=== PATIENT | male | born 1970 | race Caucasian/White ===

== ENCOUNTER → 2022-03-30 | Outpatient (CLI) | payer SELFPAY ==
[2022-03-30 14:27] LABS: Erythrocyte Sedimentation Rate 4 mm/hr (0-20)
[2022-03-30 14:53] LABS: Vitamin B12 968 pg/mL (211-911)
[2022-03-30 15:44] LABS: CRP < 2.90 mg/L (0.0-3.0); Free T3 2.9 pg/mL (2.18-3.98); T4 Free Direct 1.03 ng/dL (0.76-1.46); Thyroid Stim Hormone (TSH) 3.43 uIU/mL (0.358-3.74)
[2022-04-02 16:08] LABS: Anti-Centromere B Ab <0.2 AI (0.0-0.9); Anti-Chromatin <0.2 AI (0.0-0.9); Anti-Jo <0.2 AI (0.0-0.9); Anti-Scleroderma-70 AB 0.2 AI (0.0-0.9); RNP Ab <0.2 AI (0.0-0.9); SJOGREN'S Anti-SS-A test < 0.2 AI (0.0-0.9); SJOGREN'S Anti-SS-B test < 0.2 AI (0.0-0.9); Smith Ab <0.2 AI (0.0-0.9)
[2022-04-03 11:02] LABS: Anti-dsDNA Ab 1 IU/mL (0-9)
[2022-04-03 16:08] LABS: Endomysial Antibody IgA Negative (Negative)
[2022-04-03 19:46] LABS: Immunoglobulin A 311 mg/dL (90-386); t-Transglutaminase IgA <2 U/mL (0-3)
[2022-04-05 16:38] LABS: Calprotectin, Stool <16 ug/g (0-120); Fats, Neutral Increased (.); Fats, Total Increased (.)
[2022-04-07 12:07] LABS: Albumin 4.5 g/dL (2.9-4.4); Alpha-1-Globulins 0.2 g/dL (0.0-0.4); Alpha-2-Globulins 0.7 g/dL (0.4-1.0); Cytoplasmic Ab (C-ANCA) <1:20 titer (Neg:<1:20); Gamma Globulin 1.6 g/dL (0.4-1.8); Immunoglobulin A 329 mg/dL (90-386); Immunoglobulin G 1584 mg/dL (603-1613); Immunoglobulin M 186 mg/dL (20-172)
[2022-04-08 12:34] LABS: Carbohydrate AG 19-9 9 U/mL (0-35); Carcinoembryonic Antigen 1.1 ng/mL (0.0-4.7); Immunoglobulin E 13 IU/mL (6-495); Perinuclear Ab (P-ANCA) <1:20 titer (Neg:<1:20)
[2022-04-09 16:15] LABS: Pancreatic Elastase, Fecal 191 (>200)
== END | disposition home or self-care (01) ==
PROVIDERS: PCP Family Medicine; Referring Provider Internal Medicine Gastroenterology; Visit Provider Internal Medicine Gastroenterology
DX: K58.9 Irritable bowel syndrome, unspecified (principal); R10.9 Unspecified abdominal pain
CPT/HCPCS: 36415; 82274; 82378; 82607; 82653; 82705; 82784; 82785; 83516; 83630; 83993; 84165; 84439; 84443; 84481; 85652; 86140; 86225; 86235; 86255; 86256; 86301; 86334; 87177; 87209; 87329; 87493; 87506

== ENCOUNTER 2022-05-16 05:23 | Day surgery (SDC) | payer SELFPAY ==
[2022-05-16 06:04] VITALS: BP 145/98; PULSE 88; RESP 19; TEMP 36.8; O2SAT 100; BMI 25.7
[2022-05-16] MEDS: Lactated Ringers 1,000 ML 15 ML IV (06:04)
--- NOTE | 2022-05-16 06:29 | HP.PCM_ITS ---
History and Physical Date of Admission: 05/16/22 52 F who presents to the office today for initial consult. Gabriel established with this clinic 03.23.22 with referral from PCP. Postprandial abdominal discomfort, bloating and alternating diarrhea/constipation have been an issue for more than two years. PCP attempted to workup, but he declined at that time. Colonoscopy- has never had one FH-no other stomach disease ? ? ? ROS Const Constitutional: Positive for fatigue ENT ENT: No difficulty swallowing Gastro GI: Positive for bloating and excessive flatus; No abdominal pain, belching, change in bowel habits, change in stool character, coffee ground emesis, constipation, cramping, diarrhea, heartburn, difficulty swallowing, feeling full early, incontinent of stools, Vomiting blood/hematemesis, Blood in stool, loose stools, Black,tarry stools, nausea/dyspepsia, pain with swallowing, vomiting or other Musc Musculoskeletal: No joint pain Skin Skin: No yellowing of the eye or itchy eyes Psych Psychiatric: No anxiety and Positive for depression Endo Endocrine: Positive for fatigue Aller/Imm Allergy/Immunologic: No itchy eyes Luis Enrique/Lymp Hematologic/Lymphatic: No easy bleeding or easy bruising Exam Const General: cooperative and comfortable Nutritional Appearance: average body habitus and well nourished [facility] Head: normal to inspection Ears: hearing grossly normal bilaterally Nose: external nose normal Face and sinus: normal facial exam Mouth: oral mucosae normal Throat: posterior oropharynx normal Eyes General: appearance normal, both eyes and all related structures Neck Neck: normal visual inspection Chest Chest palpation & inspection: normal inspection of the chest and normal palpation of entire chest wall Resp Effort & Inspection: normal respiratory effort Auscultation: Bilateral: Clear to Auscultation Cardio Palpation: normal PMI Rate: regular rate Rhythm: regular rhythm GI Inspection: normal to inspection Auscultation: normal bowel sounds Percussion: normal to percussion Palpation: no hepatosplenomegaly Skin General: no rashes or lesions noted Neuro General: patient alert Extrem General: normal to inspection Psych Affect: normal affect Assessment and Plan Assessment and Plan (1) Abdominal pain: ?Status:?Acute ?Plan: Abdominal pain from unknown lesion at this time.? Did not diagnosis could be H. pylori exocrine pancreatic insufficiency.? He does not want to undergo any imaging.? He will undergo biochemical testing and stool testing.? We will order an SOHA comprehensive, ANCA, fecal elastase, immunoglobulins A, G, M.? We will also check a stool for blood as he is weak and occasionally has dark stools without BM.? Once he has work-up then I will have him back in the office. ? ? ? Orders: Orders ANCA Today R10.9 - Unspecified abdominal pain ? CRP Today R10.9 - Unspecified abdominal pain ? Erythrocyte Sed Rate Today R10.9 - Unspecified abdominal pain ? Stool Lactoferrin/WBC Today K58.9 - Irritable bowel syndrome without diarrhea, R10.9 - Unspecified abdominal pain ? Celiac Disease Profile Today R10.9 - Unspecified abdominal pain ? Immunoglobulin A Today R10.9 - Unspecified abdominal pain ? Immunoglobulin E Today R10.9 - Unspecified abdominal pain ? Immunoglobulin G Today R10.9 - Unspecified abdominal pain ? Immunoglobulin M Today R10.9 - Unspecified abdominal pain ? Miscellaneous Lab Procedure Today R10.9 - Unspecified abdominal pain ? Vitamin B12 Today R10.9 - Unspecified abdominal pain ? Free T3 Today R10.9 - Unspecified abdominal pain ? T4 Free Direct Today R10.9 - Unspecified abdominal pain ? Thyroid Stim Hormone (TSH) Today R10.9 - Unspecified abdominal pain ? SOHA Comprehensive Panel Today R10.9 - Unspecified abdominal pain ? Calprotectin, Stool Today R10.9 - Unspecified abdominal pain ? Fecal Fat, Qualitative Today R10.9 - Unspecified abdominal pain ? OVA+PARA w/Giardia EIA [id number] Today R10.9 - Unspecified abdominal pain ? CDIFF (PCR) Today R10.9 - Unspecified abdominal pain ? ENTERIC PATHOGEN PANEL STOOL Today K58.9 - Irritable bowel syndrome without diarrhea, R10.9 - Unspecified abdominal pain ? PHYLICIA + Protein Elect, Serum Today R10.9 - Unspecified abdominal pain ? Pancreatic Elastase, Fecal Today R10.9 - Unspecified abdominal pain ? Carbohydrate AG 19-9 Today R10.9 - Unspecified abdominal pain ? Carcinoembryonic Antigen Today R10.9 - Unspecified abdominal pain ? Stool Occult Blood iFOB Today R10.9 - Unspecified abdominal pain ? I have examined the patient and the H&P has been reviewed. There are no clinical changes since date of exam.
--- NOTE | 2022-05-16 06:30 | IMM_PTH ---
PATIENT: AMALIA HOOVER LOC: EN U#:[id number] AGE/SX: 52/M ROOM: RE05/16/[address]: Dr. Sridhar Shane DO : 1970 BED: DIS: 05/16/2022 SPEC #: [id number] RECD: 05/16/22 08:23 STATUS: KUSHAL VICTORINO #: [id number] ALICE: 05/16/22 06:[address]: Sridhar Shane DEPT: IMMUNOHISTOCHEMISTRY RECD BY: Koby Fisher ENTERED: 05/16/22 08:23 SP TYPE: IMMUNO OTHR DR: Dr. Nehemiah Traore, Tissues: Gastric mucous membrane Procedures: H Pylori (initial) PHYSICIAN & INSTITUTION [place] [id number] SPECIMEN INFORMATION: Tissue Source: A - Gastric antrum Clinical Info: Abdominal pain Specimen Number: [id number] CPT code: 87665 METHODOLOGY: Deparaffinized sections of prefer/formalin-fixed tissue or PAP/DQ stained slides are incubated with monoclonal/polyclonal antibodies/oligonucleotide probes. Localization is made via biotin free immunoperoxidase method. Appropriate controls are performed and reacted as expected. Results on target cell population are indicated in the following table: RESULTS: ANTIBODY / CLONE RESULT Block A H Pylori (polyclonal) negative These tests were developed and their performance characteristics determined by [facility]. They may not have been cleared or approved by the U.S. Food and Drug Administration. The FDA has determined that such clearance or approval is not necessary. The above immunohistochemical/dualISH markers are ordered and reviewed by the Pathologist. INTERPRETATION: A. Gastric antrum, biopsy: Negative for Helicobacter pylori organisms. SJ:abbey 05/17/2022
--- NOTE | 2022-05-16 06:30 | COLBX_PTH ---
PATIENT: AMALIA HOOVER LOC: HOA U#:[id number] AGE/SX: 52/M ROOM: RE05/16/[address]: Dr. Sridhar Shane DO : 1970 BED: DIS: 05/16/2022 SPEC #: [id number] RECD: 05/16/22 08:08 STATUS: KUSHAL VICTORINO #: [id number] ALICE: 05/16/22 06:[address]: Sridhar Shane DEPT: SURGICAL PATHOLOGY RECD BY: Koby Fisher ENTERED: 05/16/22 09:08 SP TYPE: COLON BX OTHR DR: Dr. Nehemiah Traore DO Tissues: A - Gastric mucous membrane B - Ileum, NOS C - COLON BIOPSY D - Transverse colon E - Sigmoid colon biopsy Procedures: Surgery Specimen Level IV HEADER OPERATION: Colonoscopy, EGD ([facility] [place]), capsule placement and biopsy PRE-OP DIAGNOSIS: Abdominal pain TISSUE SUBMITTED: A ? Gastric antrum and H. pylori and path, B ? Terminal ileum biopsies, C ? Random colonic biopsies, D ? Transverse colon polyp, E ? Sigmoid colon polyp MICROSCOPIC DIAGNOSIS A. Gastric antrum, biopsy: Fragments of gastric mucosa with focal ulceration, acute inflammation and granulation tissue reaction. See comment. B. Terminal ileum, biopsy: Fragments of small intestinal mucosa, no pathologic diagnosis. C. Colon, random biopsy: Fragments of colonic mucosa with pigment laden macrophages consistent with melanosis coli. D. Transverse colon polyp, biopsy: Hyperplastic polyp. 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 E. Sigmoid colon polyp, biopsy: Fragments of hyperplastic polyp. 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 SJ:rg 05/17/2022 COMMENT A. The results of immunohistochemistry for Helicobacter pylori will be reported separately ([id number]). MICROSCOPIC DESCRIPTION Slides are reviewed. GROSS DESCRIPTION A - Received in fixative is one container labeled with the patient's name and designated gastric antrum. The specimen consists of two irregular fragments of light vickers soft tissue that in aggregate measure 0.6 x 0.3 x 0.1 cm. The specimen is totally submitted in one cassette. B - Received in fixative is one container labeled with the patient's name and designated terminal ileum. The specimen consists of two irregular fragments of light vickers soft tissue that in aggregate measure 0.6 x 0.3 x 0.1 cm. The specimen is totally submitted in one cassette. C - Received in fixative is one container labeled with the patient's name and designated random colonic biopsies. The specimen consists of multiple irregular fragments of light vickers soft tissue that in aggregate measure 1.5 x 1 x 0.1 cm. The specimen is totally submitted in one cassette. D - Received in fixative is one container labeled with the patient's name and designated transverse colon polyp. The specimen consists of one irregular fragment of light vickers soft tissue that measures 0.4 x 0.4 x 0.4 cm. The specimen is totally submitted in one cassette. E - Received in fixative is one container labeled with the patient's name and designated sigmoid colon polyp. The specimen consists of two irregular fragments of light vickers soft tissue that in aggregate measure 0.6 x 0.3 x 0.2 cm. The specimen is totally submitted in one cassette. / SJ:rg 05/16/2022 TC:1 CPT: 70251 x5
[2022-05-16 07:15] VITALS: BP 116/85; BP 145/98; PULSE 70; RESP 14; TEMP 36.6; O2SAT 100
[2022-05-16 07:20] VITALS: BP 118/89; BP 145/98; PULSE 67; RESP 16; O2SAT 100
[2022-05-16 07:25] VITALS: BP 120/91; BP 145/98; PULSE 65; RESP 16; O2SAT 100
--- NOTE | 2022-05-16 07:25 | OP.EGD_ITS ---
Patient Name: Gabriel Qiu Procedure Date: 05/16/2022 6:05 AM Date of : 1970 Age: 52 Procedure: Upper GI endoscopy Indications: Epigastric abdominal pain Providers: Sridhar Shane DO Medicines: Monitored Anesthesia Care Patient Profile: This is a 52 year old male. Refer to note in patient chart for documentation of history and physical. Patient has symptoms. Complications: No immediate complications. Procedure: Pre-Anesthesia Assessment: - Prior to the procedure, a History and Physical was performed, and patient medications and allergies were reviewed. The patient is competent. The risks and benefits of the procedure and the sedation options and risks were discussed with the patient. All questions were answered and informed consent was obtained. Patient identification and proposed procedure were verified by the physician in the pre-procedure area. Mental Status Examination: alert and oriented. Airway Examination: normal oropharyngeal airway and neck mobility. Respiratory Examination: clear to auscultation. CV Examination: normal. Prophylactic Antibiotics: The patient does not require prophylactic antibiotics. Prior Anticoagulants: The patient has taken no previous anticoagulant or antiplatelet agents. ASA Grade Assessment: II - A patient with mild systemic disease. After reviewing the risks and benefits, the patient was deemed in satisfactory condition to undergo the procedure. The anesthesia plan was to use monitored anesthesia care (MAC). Immediately prior to administration of medications, the patient was re-assessed for adequacy to receive sedatives. The heart rate, respiratory rate, oxygen saturations, blood pressure, adequacy of pulmonary ventilation, and response to care were monitored throughout the procedure. The physical status of the patient was re-assessed after the procedure. After obtaining informed consent, the endoscope was passed under direct vision. Throughout the procedure, the patient's blood pressure, pulse, and oxygen saturations were monitored continuously. The Endoscope was introduced through the mouth, and advanced to the second part of duodenum. The upper GI endoscopy was accomplished without difficulty. The patient tolerated the procedure well. Scope In: 6:42:12 AM Scope Out: 6:51:29 AM Total Procedure Duration Time 0 hours 9 minutes 17 seconds Findings: LA Grade A (one or more mucosal breaks less than 5 mm, not extending between tops of 2 mucosal folds) esophagitis with no bleeding was found 36 to 38 cm from the incisors. Many oozing cratered gastric ulcers with adherent clot were found in the gastric antrum. The largest lesion was 3 mm in largest dimension. Coagulation for hemostasis using heater probe was successful. Estimated blood loss was minimal. Three non-bleeding cratered gastric ulcers with no stigmata of bleeding were found in the gastric antrum. The largest lesion was 2 mm in largest dimension. Biopsies were taken with a cold forceps for histology. Verification of patient identification for the specimen was done. Estimated blood loss was minimal. The first portion of the duodenum was normal. Impression: - LA Grade A reflux esophagitis. - Oozing gastric ulcers with adherent clot. Treated with a heater probe. - Non-bleeding gastric ulcers with no stigmata of bleeding. Biopsied. - Normal first portion of the duodenum. Recommendation: - Discharge patient to home. - Resume previous diet. - Continue present medications. - Await pathology results. - Repeat upper endoscopy in 1 year for surveillance. Procedure Code(s): --- Professional --- 95229, 59, Esophagogastroduodenoscopy, flexible, transoral; with control of bleeding, any method 67781, 51, Esophagogastroduodenoscopy, flexible, transoral; with biopsy, single or multiple CPT copyright 2017 [employer]. All rights reserved. The codes documented in this report are preliminary and upon machine long goods helper review may be revised to meet current compliance requirements. Sridhar Shane DO 05/16/2022 7:24:15 AM This report has been signed electronically. Number of Addenda: 0 Note Initiated On: 05/16/2022 6:05 AM
--- NOTE | 2022-05-16 07:25 | OP.CCLET_ITS ---
05/16/2022 Nehemiah Traore Re : Upper GI endoscopy procedure for Gabriel Qiu Meg Traore This procedure was performed on Monday, May 16, 2022. My impressions and recommendations are as follows: Impressions : - LA Grade A reflux esophagitis. - Oozing gastric ulcers with adherent clot. Treated with a heater probe. - Non-bleeding gastric ulcers with no stigmata of bleeding. Biopsied. - Normal first portion of the duodenum. Recommendations : - Discharge patient to home. - Resume previous diet. - Continue present medications. - Await pathology results. - Repeat upper endoscopy in 1 year for surveillance. My findings are described in the full procedure note, which is enclosed. If I can be of further assistance, please feel free to contact me at . Sincerely, Sridhar Shane, 05/16/2022 7:24:15 AM This report has been signed electronically.
--- NOTE | 2022-05-16 07:28 | OP.COLON_ITS ---
Patient Name: Gabriel Qiu Procedure Date: 05/16/2022 6:54 AM Date of : 1970 Age: 52 Procedure: Colonoscopy Indications: Screening for colorectal malignant neoplasm Providers: Sridhar Shane DO Medicines: Monitored Anesthesia Care Patient Profile: This is a 52 year old male. Refer to note in patient chart for documentation of history and physical. Patient has symptoms. Last Colonoscopy: none. The patient's first colonoscopy is today. Complications: No immediate complications. Procedure: Pre-Anesthesia Assessment: - Prior to the procedure, a History and Physical was performed, and patient medications and allergies were reviewed. The patient is competent. The risks and benefits of the procedure and the sedation options and risks were discussed with the patient. All questions were answered and informed consent was obtained. Patient identification and proposed procedure were verified by the physician in the pre-procedure area. Mental Status Examination: alert and oriented. Airway Examination: normal oropharyngeal airway and neck mobility. Respiratory Examination: clear to auscultation. CV Examination: normal. Prophylactic Antibiotics: The patient does not require prophylactic antibiotics. Prior Anticoagulants: The patient has taken no previous anticoagulant or antiplatelet agents. ASA Grade Assessment: II - A patient with mild systemic disease. After reviewing the risks and benefits, the patient was deemed in satisfactory condition to undergo the procedure. The anesthesia plan was to use monitored anesthesia care (MAC). Immediately prior to administration of medications, the patient was re-assessed for adequacy to receive sedatives. The heart rate, respiratory rate, oxygen saturations, blood pressure, adequacy of pulmonary ventilation, and response to care were monitored throughout the procedure. The physical status of the patient was re-assessed after the procedure. After I obtained informed consent, the scope was passed under direct vision. Throughout the procedure, the patient's blood pressure, pulse, and oxygen saturations were monitored continuously. The colonoscope was introduced through the anus and advanced to the terminal ileum. The colonoscopy was performed without difficulty. The patient tolerated the procedure well. The quality of the bowel preparation was good. Scope In: 6:55:19 AM Scope Withdrawal Time 0 hours 10 minutes 45 seconds Scope Out: 7:09:40 AM Total Procedure Duration Time 0 hours 14 minutes 21 seconds Findings: The perianal and digital rectal examinations were normal. A diffuse area of severe melanosis was found in the entire colon. Biopsies were taken with a cold forceps for histology. Verification of patient identification for the specimen was done. Estimated blood loss was minimal. Three sessile polyps were found in the sigmoid colon and transverse colon. The polyps were 1 to 2 mm in size. These polyps were removed with a cold snare. Resection and retrieval were complete. Verification of patient identification for the specimen was done. Estimated blood loss was minimal. A patchy area of the terminal ileum was congested. Biopsies were taken with a cold forceps for histology. Verification of patient identification for the specimen was done. Estimated blood loss was minimal. Non-bleeding internal hemorrhoids were found during retroflexion. The hemorrhoids were Grade I (internal hemorrhoids that do not prolapse). Impression: - Melanosis in the colon. Biopsied. - Three 1 to 2 mm polyps in the sigmoid colon and in the transverse colon, removed with a cold snare. Resected and retrieved. - Congested mucosa in the terminal ileum. Biopsied. Recommendation: - Discharge patient to home. - Resume previous diet. - Continue present medications. - Await pathology results. - Repeat colonoscopy in 5 years for surveillance. Procedure Code(s): --- Professional --- 23749, Colonoscopy, flexible; with removal of tumor(s), polyp(s), or other lesion(s) by snare technique 19838, 59, Colonoscopy, flexible; with biopsy, single or multiple CPT copyright 2017 [employer]. All rights reserved. The codes documented in this report are preliminary and upon soft tile setter review may be revised to meet current compliance requirements. Sridhar Shane DO 05/16/2022 7:28:02 AM This report has been signed electronically. Number of Addenda: 0 Note Initiated On: 05/16/2022 6:54 AM
--- NOTE | 2022-05-16 07:28 | OP.CCLET_ITS ---
05/16/2022 Nehemiah Traore Re : Colonoscopy procedure for Gabriel Weaver León This procedure was performed on Monday, May 16, 2022. My impressions and recommendations are as follows: Impressions : - Melanosis in the colon. Biopsied. - Three 1 to 2 mm polyps in the sigmoid colon and in the transverse colon, removed with a cold snare. Resected and retrieved. - Congested mucosa in the terminal ileum. Biopsied. Recommendations : - Discharge patient to home. - Resume previous diet. - Continue present medications. - Await pathology results. - Repeat colonoscopy in 5 years for surveillance. My findings are described in the full procedure note, which is enclosed. If I can be of further assistance, please feel free to contact me at . Sincerely, Sridhar Friend, 05/16/2022 7:28:02 AM This report has been signed electronically.
[2022-05-16 07:30] VITALS: BP 124/91; BP 145/98; PULSE 62; RESP 16; TEMP 36.6; O2SAT 100
[2022-05-16 08:26] VITALS: BP 145/98
== END 2022-05-16 08:30 | disposition home or self-care (01) ==
LOC: EN 05:32 → AC 05:32
PROVIDERS: PCP Family Medicine; Referring Provider Family Medicine; Visit Provider Internal Medicine Gastroenterology
PROC: 0DJD8ZZ Inspection of Lower Intestinal Tract, Via Natural or Artificial Opening Endoscopic (ICD-10-PCS; CPT 45378; principal; 2022-05-16 06:25)
DX: K63.89 Other specified diseases of intestine (principal); K63.5 Polyp of colon; K21.00 Gastro-esophageal reflux disease with esophagitis, without bleeding; K64.0 First degree hemorrhoids; K25.9 Gastric ulcer, unspecified as acute or chronic, without hemorrhage or perforation; F79 Unspecified intellectual disabilities
CPT/HCPCS: 45380; 45385; 43239; 43255; 88305; 88342; J7120; J2405

== ENCOUNTER → 2022-06-15 | Outpatient (CLI) | payer SELFPAY ==
[2022-06-15 13:07] LABS: ALB/GLOB Ratio 1.1 RATIO (0.9-2.4); AST(SGOT) 45 U/L (15-37); Alanine Aminotransfer ALT/SGPT 45 U/L (16-61); Albumin, Serum 4.3 g/dL (3.2-5.0); Alkaline Phosphatase 70 U/L (45-117); Anion Gap 9 (5-15); BUN 17 mg/dL (7-18); BUN/Creat Ratio 18.7 RATIO (10-20); Calcium,Total 9.8 mg/dL (8.5-10.1); Chloride 104 mmol/L (98-107); Creatinine, Serum 0.91 mg/dL (0.70-1.30); EST Glomerular Filtration Rate 93 mL/min (>60); Est Glom Filt Rate - Afr Amer 112 mL/min (>60); Globulin 3.9 g/dL (2.2-4.2); Glucose 93 mg/dL (74-106); Potassium 3.7 mmol/L (3.5-5.1); Protein, Total 8.2 g/dL (6.4-8.2); Sodium Level 139 mmol/L (136-145)
== END | disposition home or self-care (01) ==
LOC: LAB 11:29
PROVIDERS: PCP Family Medicine; Referring Provider Internal Medicine Gastroenterology; Visit Provider Internal Medicine Gastroenterology
DX: K50.90 Crohn's disease, unspecified, without complications (principal)
CPT/HCPCS: 36415; 80053

== ENCOUNTER → 2022-10-05 | Outpatient (CLI) | payer SELFPAY ==
[2022-10-05 11:35] LABS: Erythrocyte Sedimentation Rate 3 mm/hr (0-20)
[2022-10-05 12:05] LABS: CRP < 2.90 mg/L (0.0-3.0)
== END | disposition home or self-care (01) ==
PROVIDERS: PCP Family Medicine; Referring Provider Internal Medicine Gastroenterology; Visit Provider Internal Medicine Gastroenterology
DX: K50.90 Crohn's disease, unspecified, without complications (principal)
CPT/HCPCS: 36415; 85652; 86140